=== PATIENT | female | born 1980 | race Caucasian/White ===

== ENCOUNTER → 2018-02-12 | Outpatient (CLI) | payer OTHER | LOC: FIMAGING 11:51 | PROVIDERS: ATTEND Obstetrics & Gynecology | DX: O09.522 Supervision of elderly multigravida, second trimester (principal); Z3A.19 19 weeks gestation of pregnancy ==

== ENCOUNTER 2018-06-27 16:56 | Observation (INO) | payer OTHER ==
--- NOTE | 2018-06-27 18:50 | OBPROG ---
Labor Progress Note Assessment/Plan: Assessment: IUP at 38w6d decreased FM and low cramps Plan: D/C home, NST reactive and no cx change 06/27/18 18:48 Subjective/Intrapartum Course: 06/27/18 18:49 PT NOT SEEN. NST REVIEWED Objective: Per RN - no cx change from prior office visit at - - Contraction Pattern Assessment Current Contraction Pattern: Irregular (very mild q 4-6 min) - FHR Assessment [place] FHR (bpm): 120 FHR Pattern Variability: Moderate FHR Category: 1 (reactive NST and cat I, accels, no decels. GBTBV) Oxytocin Orders Assessment - Pre-Induction/Augmentation Assessment Gestational Age: 38 week(s) and 6 day(s) ICD10 Worksheet Patient Problems: Problems Problem Status Onset Decreased movement Acute - ICD10 Problem Qualifiers (1) Decreased movement
== END 2018-06-27 18:37 | disposition home or self-care (01) ==
LOC: FLD 16:56
PROVIDERS: ADMIT Obstetrics & Gynecology; ATTEND Obstetrics & Gynecology
DX: O36.8130 Decreased fetal movements, third trimester, not applicable or unspecified (principal); Z3A.38 38 weeks gestation of pregnancy
CPT/HCPCS: 59025; G0378

== ENCOUNTER 2018-07-03 06:00 | Inpatient (IN) | payer OTHER ==
[2018-07-03] MEDS ORDERED: AMMONIA AROMATIC 1 EACH AMP IH ONE (23:14)
[2018-07-03] MEDS ORDERED: LIDOCAINE 1% 300 MG/30 ML SDV ONE (23:14)
[2018-07-03] MEDS ORDERED: MISOPROSTOL 200 MCG TAB ONE (23:14)
[2018-07-03] MEDS ORDERED: OXYTOCIN 10 UNIT/ML VIAL ONE (23:14)
[2018-07-03] MEDS ORDERED: TERBUTALINE SULFATE 1 MG/ML VIAL ONE (23:14)
[2018-07-03] MEDS ORDERED: OLIVE OIL 118 ML BTL ONE (23:14)
[2018-07-03] MEDS ORDERED: EPSOM SALT 454 GM TP PRN (23:16)
[2018-07-03] MEDS ORDERED: OXYTOCIN/RINGERS LACTATE 1,000 ML IV PRN (23:16)
[2018-07-03] MEDS ORDERED: OLIVE OIL 118 ML BTL MISC PRN (23:16)
[2018-07-03] MEDS ORDERED: AMMONIA AROMATIC 1 EACH AMP IH PRN (23:16)
[2018-07-03] MEDS ORDERED: LR 1,000 ML IV PRN (23:16)
[2018-07-03] MEDS ORDERED: LIDOCAINE 1% 300 MG/30 ML SDV SC PRN (23:16)
[2018-07-03] MEDS ORDERED: MISOPROSTOL 200 MCG TAB PO PRN (23:16)
[2018-07-03] MEDS ORDERED: TERBUTALINE SULFATE 1 MG/ML VIAL IV PRN (23:16)
[2018-07-03] MEDS ORDERED: IBUPROFEN 600 MG TAB PO PRN (23:16)
[2018-07-04 00:39] LABS: PLATELET COUNT 214 10^3/uL (150-400)
--- NOTE | 2018-07-04 00:56 | PDGENHP ---
History and Physical - Chief Complaint Labor - History of Present Illness Ariadne is a 38 yo (TAB age 17) who presented at 39w5d in early labor. She had been 4cm in clinic this morning and started to have regular, painful ctx 's this afternoon with new bloody show. Not sure if her water broke in the few hours before coming into the hospital. Overall uncomplicated second - Transfer of care to [facility] at 34 wks as she wanted to deliver at [facility]. [place] [facility]. Her daughter was born via uncomplicated - 6lbs "Clare", born in [place]. 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 Distant h/o PID 10+ yrs ago. 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, HSV1 IgG pos Pap normal 09/2017 GC/C neg AFP normal Innatal normal XX female H/H 28 wks - 12.1/36.4 Glucola 93 History Information - Allergies/Home Medication List Allergies/Adverse Reactions: penicillin G Allergy (Verified 07/03/18 23:20) Rash Home Medications: [place]-3/Dha/Epa/Fish Oil [Fish Oil 1,000 mg Softgel] 2 each PO DAILY 06/27/18 [ Last Taken 06/26/18 21:00] Vit27&Calcium/Iron/FA [ Rx 1 Tablet (RX)] 1 each PO DAILY 06/27 [Last Taken 06/26/18 21:00] Ranitidine HCl [Zantac] 150 mg PO DAILY 06/27/18 [Last Taken 06/26/18 21:00] Symbicort 160-4.5 Mcg Inh (*) 2 puffs IH BID 06/27/18 [Last Taken 06/27/18 08:00 ] Ventolin Hfa Inhaler 2 puffs IH PRN PRN 06/27/18 [Last Taken Unknown] I have personally reviewed and updated: family history, medical history, social history, surgical history Past Medical History: HSV1, h/o PID, h/o TAB, asthma, AMA - Surgical History Additional surgical history: TAB age 17, adenoids as child, " hernia" age 5 -6 - Family History Positive for: non-pertinent - Social History Smoking Status: Never smoked Alcohol Use: None Review of Systems Review of Systems: ROS: 10pt was reviewed & negative except for what was stated in HPI & below Physical Exam Physical Exam: Appears uncomfortable, having regular ctx's Abdomen is gravid, but soft between ctx's Fetus in longitudinal lie, vertex by SCE FHT 145bpm, mod andrew, accels present, no decels Cashiers: Regular, q 5 mins Lab Data & Imaging Review 07/04/18 00:00 WBC 16.83 10^3/uL (3.80-9.50) H 07/04/18 00:00 RBC 3.66 10^6/uL (4.18-5.33) L 07/04/18 00:00 Hgb 12.3 g/dL (12.6-16.3) L 07/04/18 00:00 Hct 35.7 % (38.0-47.0) L 07/04/18 00:00 MCV 97.5 fL (81.5-99.8) 07/04/18 00:00 MCH 33.6 pg (27.9-34.1) 07/04/18 00:00 MCHC 34.5 g/dL (32.4-36.7) 07/04/18 00:00 RDW 14.3 % (11.5-15.2) 07/04/18 00:00 Plt Count 214 10^3/uL (150-400) 07/04/18 00:00 MPV 10.6 fL (8.7-11.7) 07/04/18 00:00 Neut % (Auto) 75.3 % (39.3-74.2) H 07/04/18 00:00 Lymph % (Auto) 14.0 % (15.0-45.0) L 07/04/18 00:00 [place] % (Auto) 7.8 % (4.5-13.0) 07/04/18 00:00 Eos % (Auto) 1.8 % (0.6-7.6) 07/04/18 00:00 Baso % (Auto) 0.3 % (0.3-1.7) 07/04/18 00:00 Nucleat RBC Rel Count 0.0 % (0.0-0.2) 07/04/18 00:00 Absolute Neuts (auto) 12.67 10^3/uL (1.70-6.50) H 07/04/18 00:00 Absolute Lymphs (auto) 2.36 10^3/uL (1.00-3.00) 07/04/18 00:00 Absolute Monos (auto) 1.32 10^3/uL (0.30-0.80) H 07/04/18 00:00 Absolute Eos (auto) 0.30 10^3/uL (0.03-0.40) 07/04/18 00:00 Absolute Basos (auto) 0.05 10^3/uL (0.02-0.10) 07/04/18 00:00 Absolute Nucleated RBC 0.00 10^3/uL (0-0.01) 07/04/18 00:00 Immature Gran % 0.8 % (0.0-1.1) 07/04/18 00:00 Immature Gran # 0.13 10^3/uL (0.00-0.10) H 07/04/18 00:00 Membrane Rupture NEGATIVE (NEGATIVE) 07/03/18 20:50 Assessment & Plan Assessment: 38 yo at 39w5d here in early labor. Presented at 4cm very uncomfortable , soon after SROM'd with clear fluid. - Labor: Expectant mgmt. - Pain: Nitrous, may want epidural. - GBS neg - Rh pos, Rubella immune. - Asthma: Cont home meds PRN. JM
--- NOTE | 2018-07-04 02:41 | OBDEL ---
Info Type: Vaginal Presentation at Delivery: Vertex L&D Analgesia/Anesthesia Type: Nitrous GBS+: No Indications for Delivery: Spontaneous Labor, SROM Vaginal Delivery - Delivery Provider Delivery Physician/CNM: Jack Cadet - Labor and Delivery Onset of Contractions Date: 07/03/18 Onset of Contractions Time: 17:00 Onset of Contractions Type: Spontaneous Rupture of Membranes Date: 07/03/18 Rupture of Membranes Time: 22:00 Rupture of Membranes Type: Spontaneous Amniotic Fluid Color: Clear Dilation Complete Date: 07/04/18 Dilation Complete Time: 02:00 Placenta Delivery Date: 07/04/18 Placenta Delivery Time: 02:26 Total Hours of Labor: 9 Laceration: Other (Specify) (Hemostatic 1st degree, no stitches needed) Repair: Other (Specify) Vaginal Sponge Count Correct: Yes Vaginal Needle Count Correct: Yes Vaginal Sweep Performed: Yes EBL: 300cc Delivery Events: None Delivery Comment: Cord blood collection completed with blood and cord segment in proprietary kit. [place] Data VICKY: 07/05/18 Gestational Age: 39 week(s) and 6 day(s) [place] Delivery Date: 07/04/18 Delivery Time: 02:16 Sex of Infant: Female Score (1 Min): 8 Score (5 Min): 9 Shoulder Dystocia Time Head Delivered: 02:16 Time Body Delivered: 02:16 ICD10 Worksheet Patient Problems: Problems Problem Status Onset (spontaneous vaginal delivery) Acute Decreased movement Acute - ICD10 Problem Qualifiers (1) (spontaneous vaginal delivery)
[2018-07-04] MEDS ORDERED: SIMETHICONE 80 MG TAB CHEW PO PRN (02:44)
[2018-07-04] MEDS ORDERED: DOCUSATE SODIUM 100 MG CAP PO PRN (02:44)
[2018-07-04] MEDS ORDERED: HYDROCORTISONE 0.5% CREAM TP PRN (02:44)
[2018-07-04] MEDS ORDERED: oxyCODONE IR 5 MG TAB PO PRN (02:44)
[2018-07-04] MEDS ORDERED: ALBUTEROL 60 PUFFS/8 GM MDI IH PRN (02:53)
[2018-07-04] MEDS: ACETAMINOPHEN 325 MG TAB PO PRN ×2 (06:20→12:50)
[2018-07-04] MEDS: IBUPROFEN 600 MG TAB PO PRN ×3 (08:50→22:19)
[2018-07-04] MEDS: BUDESONIDE/FORMOTEROL 160/4.5 60 PUFFS/MDI IH SCH ×2 (14:40→22:20)
--- NOTE | 2018-07-04 23:56 | OBPP ---
Progress Note Assessment/Plan: Assessment: Error - pt not actually seen. Plan: 07/11/18 09:02 Objective: 07/04/18 00:00 Patient ABO/Rh A POSITIVE 07/04/18 00:00 Temp Pulse Resp BP Pulse Ox 36.7 C 68 12 96/58 L 95 07/04/18 20:00 07/04/18 20:00 07/04/18 20:00 07/04/18 20:00 07/04/18 16:30
[2018-07-05] MEDS: IBUPROFEN 600 MG TAB PO PRN ×2 (05:08→11:15)
[2018-07-05 08:47] VITALS: BP 99/68
[2018-07-05] MEDS: BUDESONIDE/FORMOTEROL 160/4.5 60 PUFFS/MDI IH SCH (09:39)
--- NOTE | 2018-07-05 10:25 | OBPP ---
Progress Note Assessment/Plan: Assessment: 1) s/p PPD #2 - pt is stable 2) Anemia - pt is asymptomatic Plan: Plan for d/c home today Instructions reviewed with pt No Rx given Cont PNV, iron and colace Pelvic rest RTC in 4 weeks for a mood check and 6 weeks for a pp check 07/05/18 10:21 Subjective/ Course: 07/05/18 10:25 Pt seen and examined. Doing well, no complaints. She is pumping now and feels as if milk is starting to come in. Cramping is better today. Mod lochia. She is OOB, malick regular diet, voiding without difficulty and passing flatus. No BM yet. BF well without difficulty. Objective: 07/05/18 05:00 Patient ABO/Rh A POSITIVE 07/04/18 00:00 Temp Pulse Resp BP Pulse Ox 36.3 C 84 16 99/68 L 97 07/05/18 08:00 07/05/18 08:00 07/05/18 08:00 07/05/18 08:00 07/05/18 08:00 Uterine Position/Fundal Height: Umbilicus -2 Uterine Tone: Firm Physical Exam - Physical Exam General Appearance: WD/WN, alert, no apparent distress Respiratory: lungs clear, normal breath sounds Cardiac/Chest: regular rate, rhythm Abdomen: normal bowel sounds, non-tender, soft, flatus (+) Extremities: non-tender, normal inspection Skin: normal color, warm/dry Neuro/Psych: alert, normal mood/affect, oriented x 3
--- NOTE | 2018-07-05 10:28 | OBGCSDC ---
General Delivery Information - General Info : 3 Para: 2 Abortions: 1 Type: Vaginal L&D Analgesia/Anesthesia Type: None Admission Date: 07/03/18 Labs: Patient ABO/Rh A POSITIVE 07/04/18 00:00 Hct 32.3 % (38.0-47.0) L 07/05/18 05:00 - Hospital Course : 07/05/18 10:25 Pt seen and examined. Doing well, no complaints. She is pumping now and feels as if milk is starting to come in. Cramping is better today. Mod lochia. She is OOB, malick regular diet, voiding without difficulty and passing flatus. No BM yet. BF well without difficulty. Vaginal - Delivery Provider Delivery Physician/CNM: Jack Cadet - Diagnosis Labor: Spontaneous Rupture of Membranes Type: Spontaneous Amniotic Fluid Color: Clear Laceration: Other (Specify) (Hemostatic 1st degree, no stitches needed) Repair: Other (Specify) Delivery Events: None - Delivery EBL: 300cc Data VICKY: 07/05/18 Gestational Age: 40 week(s) and 0 day(s) [place] Delivery Date: 07/04/18 Delivery Time: 02:16 Sex of Infant: Female [place] Weight (gm): 2716 g Score (1 Min): 8 Score (5 Min): 9 Discharge Information - Discharge Information Condition: Good Instruction/Follow Up: Four Weeks (for a mood check), Six Weeks (for a visit)
== END 2018-07-05 12:45 | disposition home or self-care (01) | DRG 807 ==
LOC: FLD 20:10 → OBSVTOIN 23:00 → FOB 07-04 04:15
PROVIDERS: ADMIT Obstetrics & Gynecology; ATTEND Obstetrics & Gynecology
PROC: 10E0XZZ Delivery of Products of Conception, External Approach (ICD-10-PCS; principal; 2018-07-04)
DX: O90.81 Anemia of the puerperium (principal); O70.0 First degree perineal laceration during delivery; O99.52 Diseases of the respiratory system complicating childbirth; J45.909 Unspecified asthma, uncomplicated; Z37.0 Single live birth; Z3A.40 40 weeks gestation of pregnancy
CPT/HCPCS: J2590; J3105